=== PATIENT | male | born 1995 | race African-American/Black ===

== ENCOUNTER 2022-04-23 09:06 | Emergency (ER) | payer MEDICAID ==
[~2022-04-23] VITALS: Ht 190.5 cm; Wt 154.0 kg
[2022-04-23] MEDS: ONDANSETRON 4MG ODT PO STA (11:21)
[2022-04-23] MEDS: MAGNESIUM/ALUMINUM HYDROXIDE/SIMETHICONE 30ML UDC PO STA (11:21)
[2022-04-23 11:41] LABS: BASOPHILS % 0.6 % (0.0-2.0); EOSINOPHILS % 1.2 % (0.0-5.0); HEMATOCRIT. 46.4 % (42.0-52.0); HEMOGLOBIN. 15.7 g/dL (14.0-18.0); LYMPHOCYTES % 50.5 % (20.0-50.0); MEAN CORPUSCULAR HEMOGLOBIN 28.4 pg (28.0-32.0); MEAN PLATELET VOLUME 8.3 fl (7.4-10.4); NEUTROPHILS % 39.7 % (40.0-76.0); PLATELET 259 x1000/uL (130-400); RED BLOOD CELL COUNT 5.52 mill/uL (4.7-6.1); RED CELL DISTRIBUTION WIDTH 14.6 % (11.6-14.6)
[2022-04-23 11:46] LABS: CHLORIDE 108 mEq/L (98-107)
[2022-04-23] MEDS ORDERED: OMEP40CA20 MT (12:27)
[2022-04-23 13:30] VITALS: BP 142/87
== END 2022-04-23 13:33 | disposition home or self-care (01) ==
LOC: ER 09:15
DX: R10.13 Epigastric pain (principal)
CPT/HCPCS: 36415; 80053; 83690; 85025; 99283; Q0162